=== PATIENT | female | born 1970 | race Caucasian/White ===

== ENCOUNTER → 2017-12-24 | Outpatient (CLI) | payer OTHER | LOC: FIMAGING 12:04 | PROVIDERS: ATTEND Internal Medicine Rheumatology | DX: M15.4 Erosive (osteo)arthritis (principal); M06.841 Other specified rheumatoid arthritis, right hand; M06.842 Other specified rheumatoid arthritis, left hand; M85.671 Other cyst of bone, right ankle and foot; M25.872 Other specified joint disorders, left ankle and foot; M77.52 Other enthesopathy of left foot and ankle ==